=== PATIENT | male | born 1945 | race Caucasian/White ===

== ENCOUNTER → 2018-01-19 | Outpatient (CLI) | payer OTHER ==
[~2018-01-19] MED LIST: ASPIRIN81 M2 PO; COLACE100 MG PO; ENDOCET 5-3251 EACH PO; FERREX 150150 MG PO; FLEXERIL PO; GLUCOPHAGE500 MG PO; GLYCOLAX POWDER17 G1 PO; HYDROCODON-ACE1 EAC7 PO; HYDROCODONE-AP1 EAC6 PO; IBUPROFEN 800800 M1 PO; KEFLEX500 M1 PO; LOPRESSOR25 PO; MOM; NITROGLYCERIN0.3 M1; NORCO 5-325 TA1 EACH PO; OMEGA-31000 M1 PO; PHISOHEX148 ML TP; PRINIVIL5 MG PO; RED YEAST RICE600 M1 PO; SAW PALMETTO160 MG; SENOKOT-S1 TA1 PO; UNICOMPLEX M TA1 TA1 PO; ZOCOR 20 MG TAB20 M1 PO; [UNRECOGNIZED DRUG - OTHER]; [UNRECOGNIZED DRUG - REMARK]
== END ==
LOC: M.MRI 06:48
DX: R51 Headache (principal); M54.2 Cervicalgia

== ENCOUNTER 2018-02-23 09:40 | Emergency (ER) | payer OTHER ==
[~2018-02-23] VITALS: Ht 165.1 cm; Wt 80.7 kg
[~2018-02-23 09:40] MED LIST changes: -IBUPROFEN 800800 M1 PO; -KEFLEX500 M1 PO; -NORCO 5-325 TA1 EACH PO
[2018-02-23] MEDS ORDERED: IBUPROFEN 800800 M1 PO (11:36)
[2018-02-23] MEDS ORDERED: NORCO 5-325 TA1 EACH PO (11:36)
[2018-02-23] MEDS ORDERED: KEFLEX500 M1 PO (11:36)
[2018-02-23 11:48] VITALS: BP 128/67
== END 2018-02-23 11:48 | disposition home or self-care (01) ==
LOC: M.ERS 09:40
DX: S61.111A Laceration without foreign body of right thumb with damage to nail, initial encounter (principal); S62.521B Displaced fracture of distal phalanx of right thumb, initial encounter for open fracture; W29.3XXA Contact with powered garden and outdoor hand tools and machinery, initial encounter; Y93.89 Activity, other specified; Y92.89 Other specified places as the place of occurrence of the external cause; Y99.8 Other external cause status

== ENCOUNTER → 2018-04-11 | Outpatient (CLI) | payer OTHER ==
[~2018-04-11] MED LIST changes: +IBUPROFEN 800800 M1 PO; +KEFLEX500 M1 PO; +NORCO 5-325 TA1 EACH PO
== END ==
LOC: M.RAD 09:58
DX: S69.91XA Unspecified injury of right wrist, hand and finger(s), initial encounter (principal); X58.XXXA Exposure to other specified factors, initial encounter; Y93.89 Activity, other specified; Y92.89 Other specified places as the place of occurrence of the external cause; Y99.8 Other external cause status

== ENCOUNTER → 2019-01-24 | Outpatient (CLI) | payer OTHER ==
--- NOTE | 2019-01-24 17:22 | CARDNUC ---
[place] [address] CARDIAC NUCLEAR IMAGING REPORT Name: BRIT BARNES Room: [facility] [employer]#: [id number] Admission: 01/24/19 Attend Phys: Kanchan Parrish, Discharge: Date of : 41 Date of Service: 01/24/19 1722 Report #: [id number] THIS REPORT FOR: //name// APPROVED REPORT Study performed: 01/24/2019 07:30:00 Indication: Chest pain, PVC's. Patient Location: Out-Patient Stress Tech: Juliane Santa Stress Nurse: Rebekah Harmon RN Ht: 5 ft 6 in Wt: 182 lbs BSA: 1.92 m2 BMI: 29.37 Medical History Medical History: Angina, Arrhythmia, CAD s/p CABG, Hyperlipidemia. Medications: Rosuvastatin, NTG, ASA 81 Mg. Allergies: Crestor, Oxycodone. Cardiac Risk Factors: Age, Hyperlipidemia, PVC's, HX CABG. Previous Cardiac Procedures: CABG Pretest Chest Pain Characteristics: No chest pain Exercise History: Indeterminate Physical Disabilities: Knees Meds Held (24 hrs): NTG Resting Data Rest SPECT myocardial perfusion imaging was performed in supine position 30 minutes following the intravenous injection of 10.7 mCi of Tc-99m Sestamibi. Time of rest injection: 08:00 The images were gated to evaluate regional wall motion and calculate left ventricular ejection fraction. Administration Route: IV Administration Site: Right Hand Pharmacologic Stress Pharmacologic stress test was performed by injecting Regadenoson 0.4 mg IV push over 10-15 seconds immediately followed by the intravenous injection of 33.9 mCi of Tc-99m Sestamibi. Time of stress injection: 09:35 Administration Route: IV Administration Site: Right Hand Heart Rate at time of stress injection: [address] [place] [address] CARDIAC NUCLEAR IMAGING REPORT Name: BRIT BARNES [id number] Admission: 01/24/19 Attend Phys: Kanchan Parrish, Discharge: Date of : 41 Date of Service: 01/24/19 1722 Report #: [id number] The images were gated to evaluate regional wall motion and calculate left ventricular ejection fraction. Prone imaging was performed. Stress Test Details Stress Test: Pharmacologic stress testing performed using 0.4 mg of regadenoson per 5 mL given IV over 10 seconds. Reason for pharmacologic stress test: physical limitation, knee problems.. HR Max Heart Rate (APMHR): 145 bpm Resting HR: 71 bpm Target HR (85% APMHR): 123 bpm Max HR Achieved: 118 bpm % of APMHR: 81 Recovery HR: 96 bpm BP Resting BP: 131/79 mmHg Max BP: 143/96 mmHg Recovery BP: 128/86 mmHg ECG Resting ECG: atrial flutter with 3-1 AV conduction Stress ECG: atrial flutter with 3-1 AV conduction and occasional unifocal PVCs ST Change: None Arrhythmia: VPC's Recovery ECG: atrial flutter with variable AV conduction and occasional unifocal PVCs Recovery ST Change: None Recovery Arrhythmia: VPC Clinical Reason for Termination: Completed protocol Stress Symptoms: Headache. Exercise duration: 0 min 0 sec Exercise capacity: 1.00 METs The patient tolerated Lexiscan infusion without significant cardiac complaints. Nurse Comments 73 year old male presented with recent HX of CP and PVC's. Due to poor ECG reading while walking, patient performed sitting Lexiscan with minimal side effects, well tolerated. Recovery unremarkable with PO caffeine. Patient escorted to Nuclear Medicine for images. Patient stable with [place] [address] CARDIAC NUCLEAR IMAGING REPORT Name: CAMERONBRIT Room: [facility]#: [id number] Admission: 01/24/19 Attend Phys: Kanchan Parrish, Discharge: Date of : 41 Date of Service: 01/24/19 1722 Report #: [id number] Stress ECG Conclusion The baseline EKG shows atrial flutter with no significant ST or T wave abnormalities. EKGs obtained during and post Lexiscan infusion showed persistent atrial flutter with no significant ST segment changes when compared to baseline. There were occasional unifocal premature ventricular contractions noted during and post Lexiscan infusion. No other significant arrhythmias noted. Study Quality Study: Good Artifact: Mild Diaphragmatic artifact Study Data At rest, the left ventricular ejection fraction was 46%.. Post stress, the left ventricular ejection was 55%.. TID = 0.99. Perfusion Myocardial perfusion images obtained at rest show a small in size mild intensity defect involving the basal inferior wall that resolves with post stress prone imaging suggesting diaphragmatic attenuation artifact. No other significant fixed or reversible defects identified. Wall Motion Global LV systolic function appears normal. There is a septal wall motion abnormality consistent with prior bypass procedure. Nuclear Conclusion ECG Findings: negative for ischemia Clinical Findings: negative for ischemia Nuclear Findings: negative for ischemia Exercise Capacity: not assessed Left Ventricular Function: preserved Risk Study: low Myocardial perfusion images show no defect to suggest infarct or ischemia. Global LV systolic function appears to be well preserved. This is a low risk study. <Conclusion> The baseline EKG shows atrial flutter with no significant ST or T wave abnormalities. EKGs obtained during and post Lexiscan infusion showed persistent atrial flutter with no significant ST segment changes when compared to baseline. [place] [address] CARDIAC NUCLEAR IMAGING REPORT Name: BRIT BARNES Room: [facility]#: [id number] Admission: 01/24/19 Attend Phys: Kanchan Parrish, Discharge: Date of : 41 Date of Service: 01/24/19 1722 Report #: [id number] premature ventricular contractions noted during and post Lexiscan infusion. No other significant arrhythmias noted. <ELECTRONICALLY SIGNED> By: Jeb Estrada MD, FACC 01/24/191721 21 21 Jeb Estrada MD, FACC /INF
--- NOTE | 2019-01-25 15:45 | 24HR ---
[place] [address] HOLTER MONITOR REPORT Name: BRIT BARNES Room: [facility]#: [id number] Admission: 01/24/19 Attend Phys: Kanchan Parrish, Discharge: Date of : 41 Date of Service: 01/25/1959 Report #: [id number] THIS REPORT FOR: //name// [facility] Test Date: 2019-01-25 Test Time: 09:57:23 Pat Name: BRIT BARNES Department: Room: Gender: Care Support Representative: : 1945 Requested By: Kanchan Parrish Order Number: [id number] Danielle MD: Jorje Rogers Interpretive Statements 1. sinus rhythm with sinus tachycardia 2. frequent pvc's with couplets and triplets 3. occasional pac's 4. no diary Electronically Signed On 01-25-2019 15:45:43 CDT by Jorje Rogers [email or web address] <ELECTRONICALLY SIGNED> By: Jorje Rogers MD, [facility] 01/25/19 1545 [id number] Jorje Rogers MD, FACC /EPI
== END ==
LOC: M.NUC 07:21
DX: I25.119 Atherosclerotic heart disease of native coronary artery with unspecified angina pectoris (principal); I49.3 Ventricular premature depolarization; Z88.8 Allergy status to other drugs, medicaments and biological substances; Z95.1 Presence of aortocoronary bypass graft

== ENCOUNTER → 2019-09-06 | Outpatient (CLI) | payer OTHER | LOC: M.RAD 09-04 17:18 | DX: M25.462 Effusion, left knee (principal); M25.862 Other specified joint disorders, left knee ==

== ENCOUNTER → 2020-01-01 | Outpatient (CLI) | payer MEDICARE | LOC: M.MRI 11:53 | DX: I67.82 Cerebral ischemia (principal); R90.82 White matter disease, unspecified; G93.9 Disorder of brain, unspecified; R20.2 Paresthesia of skin ==

== ENCOUNTER → 2021-04-22 | Outpatient (CLI) | payer MEDICARE ==
[2021-04-22 10:13] LABS: CHOLESTEROL 134 mg/dL (<200); HDL CHOLESTEROL 38 mg/dL (>40); LDL CHOLESTEROL 83 mg/dL (<100); SERUM ASSESSMENT Clear; TC:HDL 3.5 Ratio (Not establshd); TRIGLYCERIDE 69 mg/dL (<150); VLDL 14 mg/dL (<40)
== END ==
LOC: M.LAB 09:44
PROVIDERS: ATTEND Internal Medicine Cardiovascular Disease
DX: E78.00 Pure hypercholesterolemia, unspecified (principal)